=== PATIENT | female | born 1995 | race African-American/Black ===

== ENCOUNTER 2021-05-25 14:41 | Emergency (ER) | payer OTHER ==
[~2021-05-25] VITALS: Ht 160 cm; Wt 61.8 kg
[2021-05-25 16:08] VITALS: BP 128/76
[2021-05-25] MEDS ORDERED: IBUPROFEN 200 MG TABLET. PO ONE (17:45)
[2021-05-25] MEDS ORDERED: ACETAMINOPHEN 325 MG TABLET. PO ONE (17:45)
[2021-05-25] MEDS ORDERED: CYCL10TA19 PO (18:02)
[2021-05-25] MEDS ORDERED: IBUP-1007 PO (18:02)
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
== END 2021-05-25 18:14 | disposition home or self-care (01) ==
LOC: ER 14:41
DX: M79.604 Pain in right leg (principal); M54.2 Cervicalgia; M25.511 Pain in right shoulder; G89.11 Acute pain due to trauma; V49.49XA Driver injured in collision with other motor vehicles in traffic accident, initial encounter; Y92.488 Other paved roadways as the place of occurrence of the external cause; Y93.89 Activity, other specified; Y99.8 Other external cause status
CPT/HCPCS: 99283